=== PATIENT | male | born 1960 ===

== ENCOUNTER 2020-09-01 09:56 | Outpatient (CLI) | payer BC, MEDICAID, SELFPAY ==
--- NOTE | 2020-09-01 06:00 | DI.RAD_ITS ---
Exam(s) XR PAIN CLINIC LUMBAR SP 2V EXAM: XR PAIN CLINIC LUMBAR SP 2V CLINICAL HISTORY: Dx: Lumbar Medial Branch Block TECHNIQUE: 2D and realtime digital imaging was performed. Radiologist not present. CONTRAST MATERIAL: None. COMPARISON: No exams were available for comparison FINDINGS: Fluoroscopy was provided for pain management therapy. Please refer to the procedure report for compl ete details. There are no submitted images. Submitted image(s) reveal . Please refer to procedure report or details. Cumulative dose: Ka,r= mGy IMPRESSION: RADIATION DOSE DELIVERED:
[2020-09-01 10:07] VITALS: BP 161/72; PULSE 92; RESP 20; TEMP 37; O2SAT 98
[2020-09-01] MEDS: Bupivacaine 0.5% Pres-Free 10 ML VIAL IJ (10:41)
[2020-09-01] MEDS: Omnipaque 240 MG/ML 50 ML BTL IJ (10:42)
--- NOTE | 2020-09-01 10:43 | PDOC.PAIN ---
Pain Clinic Procedure Note Procedure Note Procedure Note: Lumbar/Sacral Medial Branch Blocks Rohan Lares has been referred to the [facility] for lumbar/sacral medial branch blocks. COMMENTS: Patient was seen in our clinic on 08/10/20 Dx: Lumbosacral spondylosis without myelopathy Patient was interviewed and the medical record reviewed. There were no medical, pharmacologic, radiographic or other structural contraindications to attempting fluoroscopically guided local anesthetic lumbar/sacral medial branch blocks. Risks and expected side effects as well as potential benefit of the procedure were reviewed and voiced concerns addressed. The printed consent form was signed and witnessed. Standard time-out procedure was performed. Patient was placed in the prone position on the fluoroscopy table and automated blood pressure cuff and pulse oximeter applied. The skin entry points for approaching the anatomic target points of the segmental medial branches of bilateral L3-L5DR were identified with anfluoroscopy and marked. Following thorough Chlorhexadine preparation of the skin and draping and 1% lidocaine infiltration of the skin entry points and subcutaneous tissues, a 22 gauge spinal needle was placed under fluoroscopic guidance down on to the target point for each respective segmental medial branch.Position was confirmed in A/P, oblique and lateral views with 0.25ml of omnipaque 240. At this point 0.5 cc of 0.5% Bupivacaine was injected towards each segmental sensory nerve. Vital signs were stable throughout the procedure and were as recorded in the docflowsheet by the nursing staff. Follow up plans and appointments were discussed and was instructed to keep careful note of how the usual pain was modified by these injections. Specifically was asked to keep a pain diary for the next 24 hours using a numeric pain scale of 0-10 and report these results at the follow-up visit. Post procedure instruction was given as documented in the nursing documentation and having met discharge criteria. Patient was discharged from the [facility]. Based on the medial branches blocked today, if the patient has adequate relief and we are able to proceed to radiofrequency ablation, the treatment should result in the denervation of the bilateral L4-L5 and L5-S1 FACET JOINTS. We would expect to denervate a total of 4 facets during the radiofrequency ablation. COMMENTS: Post-procedure pain VAS is 0/10. Jean-Pierre Echeverria DO, MPH Pain Management CC: Aminah Pires
[2020-09-01 10:51] VITALS: BP 110/76; PULSE 93; RESP 22; O2SAT 99
== END 2020-09-01 09:57 | disposition home or self-care (01) ==
LOC: PC 09:59
PROVIDERS: PCP Registered Nurse; Visit Provider Preventive Medicine Occupational Medicine
DX: M47.816 Spondylosis without myelopathy or radiculopathy, lumbar region (principal)
CPT/HCPCS: 64493; 64494; 72100; Q9967

== ENCOUNTER 2021-05-04 02:14 | Outpatient (CLI) | payer MEDICAID, SELFPAY ==
--- NOTE | 2021-05-04 11:00 | DI.NM_ITS ---
APPROVED REPORT Exam: Exercise Treadmill Patient Location: Out-Patient Room/Bed: Stress Nurse: Kavitha Blas RN Ordering Provider:JULIO CESAR DAVENPORT MD Contact Number: [phone] BMI: 22.04 Baseline Rhythm: Sinus Tachycardia Comment: RBBB and LPFB, minimal ST elevation inferior leads Indications: Pre-op eval vascular surgery Medical History Medical History: Hypertension, hyperlipidemia, smoker (current), hypothyroidism Cardiac Medications: Metoprolol succinate, liothyronine, losartan, rosuvastatin, aspirin, levothyroxi ne Allergies: Grass pollen Cardiac Risk Factors: Hypertension, hyperlipidemia, smoker (current), family hx Previous Cardiac Procedures: None Pretest Chest Pain Characteristics: None Exercise History: Sedentary Physical Disabilities: None Lung Sounds: Clear to auscultation Heart Sounds: Regular Stress Test Details Test: Exercise stress testing was performed using a Francisco protocol. Nuclear Acquisition: Rest Tc-99m/Stress Tc-99m 1 day Rest Isotope: Tc-99m Sestamibi. Dose: 10.3 Date: 05/04/2021 Injection Time: 1110 Stress Isotope: Tc-99m Sestamibi. Dose: 32.2 Date: 05/04/2021 Injection Time: 1305 HR Resting HR Supine: 107 bpm Max Heart Rate (APMHR): 161.785420 bpm Resting HR Standin bpm Target HR (85% APMHR): 136.095375 bpm Max HR Achieved: 150 bpm % of APMHR: 93.17 Recovery HR: 111 bpm HR response to stress: Normal HR response to stress BP Resting BP Supine: 162/82 mmHg Resting BP Standin/84 mmHg Max BP: 170/88 mmHg Recovery BP: 154/82 mmHg BP response to stress: Normal blood pressure response to stress. ECG Resting ECG: Sinus Tachycardia, RBBB and LPFB, minimal ST elevation inferior leads Ectopy: None Stress ECG: Sinus Tachycardia, RBBB and LPFB ST Change: No significant ST segment changes noted Arrhythmia: Rare PVCs Recovery ECG: Sinus Tachycardia, RBBB and LPFB Recovery ST Change: No significant ST segment changes noted Recovery Arrhythmia: Rare PVC Clinical Reason for Termination: Fatigue, Dyspnea Stress Symptoms: General Fatigue, Dyspnea Exercise duration: 2 min55 sec Highest Stage Reached: Stage 1: 1.7 mph at 10% grade. Exercise capacity: 4.64 METs Church Treadmill Score: 1.3 Rate Pressure Product: 30560 Stress ECG Conclusion 1. Resting electrocardiogram showed right bundle branch block, left posterior fascicular block 2. Patient exercised on the Francisco protocol and completed a workload of 4.64 METS, stopping due to fat igue and shortness of breath 3. Normal heart rate and blood pressure response to exercise. Patient achieved 93% of predicted hear t rate for age 4. Electrocardiographic portion of the test did not show any evidence of myocardial ischemia 5. Rare PVCs were seen Church Treadmill Score is 1.3 which is Moderate risk. Stress Test Summary STAGE Time (mins) Speed (mph) Grade (%) HR BP SYMPTOMS METS Supine 107 162/82 Standing 117 160/84 SpO2 96% 1 3 1.7 10 150 Moderate SOB, lightheaded, SpO2 92% 4.6 1 min recovery 145 170/88 Mild SOB, lightheadedness resolved, SpO2 92% 3 min recovery 122 160/80 SOB resolved, SpO2 967% 6 min recovery 111 154/82 SpO2 98% MPI Conclusion Normal myocardial perfusion without evidence of ischemia or prior infarction EF 69%, normal wall motion Radiologist Interpretation Radiologist agrees with Foundry Operator's Interpretation. Radiologist Interpretation by: Slime Waller MD Interpretation Date/Time: 05/04/2021 16:58:20
== END 2021-05-04 02:34 ==
PROVIDERS: PCP Registered Nurse; Visit Provider Internal Medicine Interventional Cardiology
DX: Z01.818 Encounter for other preprocedural examination (principal); I45.10 Unspecified right bundle-branch block
CPT/HCPCS: 78452; 93017

== ENCOUNTER 2021-05-04 04:26 | Outpatient (CLI) | payer MEDICAID, SELFPAY ==
[2021-05-04 10:21] LABS: Abs Immature Grans 0.04 10^3/uL (0.0-0.06); Absolute Basophil Count 0.07 10^3/uL (0.0-0.2); Absolute Eosinophil Count 0.09 10^3/uL (0.0-0.7); Absolute Lymphocyte Count 2.17 10^3/uL (1.2-3.4); Basophils % 0.6; Eosinophils % 0.8; HCT 44.1 % (40.0-50.0); HGB 14.9 g/dL (13.5-17.5); Immature Grans % 0.4; Lymphocytes % 19.1; MCH 35.3 pg (27.0-33.0); MCHC 33.8 % (32.0-36.0); MCV 104.5 fL (80-95); MPV 9.5 fL (8.0-11.0); Monocytes % 7.9; Neutrophils % 71.2; Nucleated RBC 0 %; Platelet Count 203 10^3/uL (130-400); RBC 4.22 10^6/uL (4.36-5.78); RDW 13.1 % (11.8-14.1); RDW-SD 51.3 fL; WBC 11.37 10^3/uL (4.4-10.8)
[2021-05-04 11:28] LABS: ALT 37 U/L (16-63); AST 37 U/L (15-37); Albumin 4.1 g/dL (3.4-5.0); Alkaline Phosphatase 86 U/L (46-116); Anion Gap 12.6 mmol/L (3-11); BUN 17 mg/dL (7-18); Bilirubin, Total 0.6 mg/dL (0.2-1.0); CO2 26.4 mmol/L (21.0-32.0); CREATININE 1.1 mg/dL (0.70-1.30); Calcium 9.3 mg/dL (8.5-10.1); Calculated LDL 99 mg/dL (<100); Chloride 102 mmol/L (98-107); Cholesterol 194 mg/dL (<200); Glucose 106 mg/dL (74-106); HDL Cholesterol 64 mg/dL (40-60); Potassium 3.8 mmol/L (3.5-5.1); Sodium 141 mmol/L (136-145); TSH 0.09 uIU/mL (0.36-3.74); Total Protein 7.7 g/dL (6.4-8.2); Triglyceride 158 mg/dL (<150)
[2021-05-04 11:40] LABS: Bilirubin, Direct 0.2 mg/dL (0.0-0.2)
== END 2021-05-04 04:27 | disposition home or self-care (01) ==
PROVIDERS: PCP Registered Nurse; Visit Provider Internal Medicine Interventional Cardiology
DX: E78.5 Hyperlipidemia, unspecified (principal)
CPT/HCPCS: 36415; 80061; 80069; 80076; 84443; 85025

== ENCOUNTER 2024-10-23 00:51 | Outpatient (CLI) | payer MEDICARE, SELFPAY ==
[2024-10-23] MEDS: Levalbuterol HFA 15 GM INH 4 PUFF IH (12:28)
[2024-10-23] MEDS: Inhaler, Assist Device 1 EACH MC (12:28)
--- NOTE | 2024-10-28 07:15 | W.PFT ---
Date of service: 10/23/24 Time of Service: 10:59 Pulmonary Function Test Result Indications: Dyspnea Impression 1. Good patient effort was noted. ATS standards for reproducibility were met. 2. Spirometry showed moderate obstructive lung disease with an FEV1 of 78% (2.56 L) 3. Following the administration of a bronchodilator there was not a significant response 4. TLC and RV were elevated, consistent with air trapping 5. DLCO was 52%, consistent with a moderate defect in alveolar gas exchange
== END 2024-10-23 00:52 | disposition home or self-care (01) ==
LOC: RT 00:52
PROVIDERS: PCP Specialist/Technologist Athletic Trainer; Visit Provider Internal Medicine Pulmonary Disease
DX: J44.9 Chronic obstructive pulmonary disease, unspecified (principal); R06.09 Other forms of dyspnea
CPT/HCPCS: 94060; 94726; 94729

== ENCOUNTER 2024-10-23 01:27 | Outpatient (CLI) | payer MEDICARE, SELFPAY ==
--- NOTE | 2024-10-23 10:35 | DI.CTLCSR_ITS ---
Exam(s) CT CHEST LUNG CANCER SCREEN EXAM: CT CHEST LUNG CANCER SCREEN CLINICAL HISTORY: EXTENSIVE SMOKING HISTORY > 50 PACK YEARS CURRENT SMOKER, F17.210. TECHNIQUE: Imaging Protocol: Low Dose Technique CONTRAST MATERIAL: None COMPARISON: No exams were available for comparison FINDINGS: CHEST: LUNGS: There are emphysematous changes in both lung mccabe.. There is a small fissure related nodule in the right lung which measures 5-6 mm. There is also tiny 2 millimeter subpleural nodule in the right lower lobe. There is also mild subpleural infiltrate in the anterior basal segment of the right lower lobe- lateral left lung base. No pleural effusions. On the opposite-left side there is some mild infiltrate in the lateral basal segment of the left lower lobe. There is a small 3 millimeter nodule in the lingular segment of the left lung. MEDIASTINUM: There is no obvious hilar nor mediastinal adenopathy. No subcarinal adenopathy. CARDIAC: Heart size is normal. There is no pericardial effusion.Caliber of the thoracic aorta is within normal limits. OTHER: There is a cortex shunt extending from the left common carotid artery to the left subclavian artery. This was most probably performed for occlusion of the proximal left subclavian artery. Patency of the shunt cannot be assessed as this is not a contrast infused study. OSSEOUS: No significant osseous lesions.No fractures.. IMPRESSION: 1. 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 2. Bilateral small nodular infiltrate findings. Recommend repeat CT scan in 6 months. 3. Lung RADS Cat 3 - Probably Benign: Probably benign finding(s) - short term follow-up suggested; include nodules with a low likelihood of becoming a clinically active cancer. Lung-RADS 1.0 CATEGORIES: Category 0 - Prior chest CT exam(s) being located for comparison. Category 1 - Annual screening in 12 months. No nodules or definitely benign nodules. Category 2 - Annual screening in 12 months. Benign appearance. Nodules with low likelihood of becoming active cancer. Category 3 - 6-month follow-up. Probably benign. Short-term follow-up suggested. Nodules with low likelihood of becoming active cancer. Category 4A - 3-month follow-up and CT/PET if >8 mm in size. Suspicious finding. Findings which require additional testing. Category 4B - Findings which require additional testing and tissue sampling. Category 4X - Category 3 or 4 nodules with additional features or imaging findings that increases the suspicion of malignancy. Modifier S- Potentially clinically significant findings (non lung cancer) RADIATION DOSE DELIVERED: 25.56mGy.cm Total DLP DATA REPOSITORY: All CT scans at this facility are submitted to the National Radiology Data Registry (NRDR) Dose Index Registry (DIR) with the [employer] ([employer]). RADIATION OPTIMIZATION: All CT scans at this facility use at least one of these dose optimization techniques: automated exposure control; mA and/or kV adjustment per patient size (includes targeted exams where dose is matched to clinical indication); or iterative reconstruction.
== END 2024-10-23 01:47 ==
PROVIDERS: PCP Specialist/Technologist Athletic Trainer; Visit Provider Specialist/Technologist Athletic Trainer
DX: Z12.2 Encounter for screening for malignant neoplasm of respiratory organs (principal); F17.210 Nicotine dependence, cigarettes, uncomplicated; J44.89 Other specified chronic obstructive pulmonary disease
CPT/HCPCS: 71271; 94060; 94726; 94729